=== PATIENT | female | born 1955 | race Caucasian/White ===

== ENCOUNTER 2018-05-25 10:34 | Outpatient (CLI) | payer OTHER ==
--- NOTE | 2018-05-25 12:28 | RAD ---
CERVICAL SPINE SERIES THREE VIEWS: HISTORY: Followup of C1 fracture. COMPARISON: None. FINDINGS: The vertebral bodies maintain normal height. Degenerative changes of the lower cervical spine are se en with degenerative disk narrowing at C5-C6 and C6-C7, and minimal anterolisthesis of C7 on T1. The re are degenerative facet changes present. It is difficult to definitely appreciate a C1 fracture on this examination. The open-mouth views are somewhat suboptimal for visualization of the lateral mas ses of C1. No malalignment noted. Some lucency is seen through the C1 vertebral body, just posterio r to the dens. This could be the area of fracture. IMPRESSION: Arthritic changes of the spine. Overall, bony alignment is satisfactory. POS: [facility]
== END 2018-05-25 10:35 | disposition home or self-care (01) ==
LOC: TBSIIMAG 10:34
PROVIDERS: ATTEND Surgery
DX: S12.000A Unspecified displaced fracture of first cervical vertebra, initial encounter for closed fracture (principal); M46.92 Unspecified inflammatory spondylopathy, cervical region
CPT/HCPCS: 72040

== ENCOUNTER 2018-06-20 13:43 | Outpatient (CLI) | payer OTHER ==
--- NOTE | 2018-06-20 15:16 | RAD ---
CERVICAL SPINE 3 VIEWS: Date: 06/20/18 COMPARISON: 05/25/18. HISTORY: Follow-up fracture of C1-C3. FINDINGS: There appears to be a radiolucent cervical collar. There is anterolisthesis (4.5 mm) of C7 upon T1, i ncompletely evaluated. On the lateral projection, cervical spine vertebral body height is maintained. There is no fracture. Mild to moderate loss of disc space height at C5-C6 and C6-C7. Predental space is normal. No prevertebral soft tissue swelling. Suboptimal evaluation of the open-mouth view. On the AP projection, no definite malalignment. IMPRESSION: 1. No radiographic evidence of fracture. 2. Anterolisthesis of C7 upon T1. POS: [facility]
== END 2018-06-20 13:44 | disposition home or self-care (01) ==
LOC: TBSIIMAG 13:43
PROVIDERS: ATTEND Surgery
DX: M54.2 Cervicalgia (principal); S12.9XXA Fracture of neck, unspecified, initial encounter; M43.13 Spondylolisthesis, cervicothoracic region
CPT/HCPCS: 72040

== ENCOUNTER 2018-08-03 09:04 | Outpatient (CLI) | payer OTHER ==
--- NOTE | 2018-08-03 10:37 | RAD ---
CERVICAL SPINE THREE VIEWS: History: Stable anterolisthesis of C7 on T1. No evidence for other significant acute process. No prevertebral soft tissue swelling. IMPRESSION: Stable appearance of the cervical spine. Anterolisthesis of C7 on T1. POS: [facility]
== END 2018-08-03 09:05 | disposition home or self-care (01) ==
LOC: TBSIIMAG 09:04
PROVIDERS: ATTEND Surgery
DX: S12.9XXA Fracture of neck, unspecified, initial encounter (principal); M43.13 Spondylolisthesis, cervicothoracic region
CPT/HCPCS: 72040

== ENCOUNTER 2018-09-09 09:09 | Outpatient (CLI) | payer OTHER ==
--- NOTE | 2018-09-09 09:43 | RAD ---
CERVICAL SPINE SERIES 3 VIEWS: Date: 09/09/18 HISTORY: Follow-up of C1 fracture. COMPARISON: 08/03/18 exam. FINDINGS: The vertebral bodies are normal in height. Degenerative disc narrowing seen at C5-6 and C6-7. Anterol isthesis of C7 on T1 is stable. A C1 fracture is difficult to definitively appreciate on this examina tion. IMPRESSION: Stable exam. POS: [facility]
== END 2018-09-09 09:10 | disposition home or self-care (01) ==
LOC: TBSIIMAG 09:09
PROVIDERS: ATTEND Surgery
DX: S12.9XXA Fracture of neck, unspecified, initial encounter (principal); M54.5 Low back pain
CPT/HCPCS: 72040

== ENCOUNTER 2018-12-09 07:03 | Outpatient (CLI) | payer OTHER ==
--- NOTE | 2018-12-09 09:46 | ULT ---
FEXAM:Liver ultrasound HISTORY: Follow-up of liver cyst. COMPARISON: CT examination done at the [facility] dated 05/09/2018. FINDINGS:Real-time imaging of the liver shows a normal-appearing gallbladder. The common duct is 4 mm . Technologist reports a negative ultrasound Martin sign. The liver measures 15.2 cm in length. Within the left lobe is a septated cyst or a small cluster of c yst measuring approximately 2.6 x 4.3 cm in maximum dimension. This appears unchanged in size since t he previous CT. A second cyst in the more lateral aspect of the left lobe of the liver was not imaged on this study. Right kidney is normal in size and not obstructed. IMPRESSION:Stable appearance to a septated left lobe liver cyst.
--- NOTE | 2018-12-09 10:39 | MMO ---
Bilateral MAMMO Bilat Screen [facility]. CLINICAL HISTORY: Patient is 63 years old and is seen for screening. The patient has the following family history of breast cancer: maternal grandmother, malignant (generic). The patient has no personal history of cancer. VIEWS: The views performed were: bilateral craniocaudal and bilateral mediolateral oblique. FILMS COMPARED: The present examination has been compared to prior imaging studies performed at [facility] on 05/08/2014 and 05/10/2015. This study has been interpreted with the assistance of computer-aided detection. MAMMOGRAM FINDINGS: There are scattered fibroglandular densities. There are no suspicious masses, suspicious calcifications, or new areas of architectural distortion. IMPRESSION: THERE IS NO MAMMOGRAPHIC EVIDENCE OF MALIGNANCY. A ROUTINE FOLLOW-UP MAMMOGRAM IN 1 YEAR IS RECOMMENDED. ACR BI-RADS Category 1 - Negative MAMMOGRAPHY NOTE: 1. A negative mammogram report should not delay a biopsy if a dominant of clinically suspicious mass is present. 2. Approximately 10% to 15% of breast cancers are not detected by mammography. 3. Adenosis and dense breasts may obscure an underlying neoplasm.
== END 2018-12-09 07:04 | disposition home or self-care (01) ==
LOC: SCSULT 07:03
PROVIDERS: ATTEND Internal Medicine Gastroenterology
DX: Z12.31 Encounter for screening mammogram for malignant neoplasm of breast (principal); K76.89 Other specified diseases of liver
CPT/HCPCS: 76705; 77067

== ENCOUNTER 2019-07-21 08:29 | Outpatient (CLI) | payer OTHER ==
--- NOTE | 2019-07-21 09:58 | ULT ---
Sonogram number with duplex evaluation HISTORY: Liver mass. FINDINGS: Gallbladder has a normal appearance. Common duct is 0.3 cm. Liver has a homogeneous echotex ture. Within the medial dome of the lateral segment left liver lobe, a lobular cyst with a thin internal septation now measures 2.9 x 2.5 x 2.1 cm greatest diameters. The overall cluster of cysts m easures up to 3.9 cm greatest diameter (previously 4.3 cm). No solid masses or intrahepatic biliary dilatation. No free fluid. Spleen measures up to 8.2 cm witho ut focal mass. Good color and spectral Doppler flow within the hepatic and splenic arteries. Portal venous flow is t owards the liver. Hepatic venous flow towards the IVC. IMPRESSION: Stable sonographic appearance of the complex cyst within the left liver lobe. No new abno rmalities are demonstrated. No evidence of portal venous hypertension.
== END 2019-07-21 08:30 | disposition home or self-care (01) ==
LOC: SCSULT 08:29
PROVIDERS: ATTEND Internal Medicine Gastroenterology
DX: K76.9 Liver disease, unspecified (principal)
CPT/HCPCS: 76705

== ENCOUNTER 2023-01-13 08:34 | Outpatient (CLI) | payer MEDICARE, OTHER | END 2023-01-13 08:35 | disposition home or self-care (01) | LOC: ULT 08:34 | PROVIDERS: ATTEND Physician Assistant Medical | DX: K76.89 Other specified diseases of liver (principal); K74.60 Unspecified cirrhosis of liver; K83.8 Other specified diseases of biliary tract | CPT/HCPCS: 76705 ==